=== PATIENT | female | born 2000 | race Asian ===

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

== ENCOUNTER → 2024-03-06 | Emergency (ER) | payer OTHER ==
[~2024-03-06] VITALS: Ht 162.6 cm; Wt 86.4 kg
[~2024-03-06] MED LIST: ALBU18HF12 IH; ATOM100C2 PO; BENZ-227 PO; NORG1TAB13 PO
[2024-03-06 11:05] VITALS: BP 133/84; PULSE 78; RESP 16; TEMP 99; O2SAT 98
[2024-03-06 11:44] LABS: COVID AG,FIA SOURCE NASAL SWAB
[2024-03-06 12:38] LABS: SARS-COV2 (COVID) ANTIGEN,FIA Negative (Negative)
[2024-03-06 12:39] LABS: INFLUENZA TYPE A NEGATIVE FOR TYPE A (NEGATIVE); INFLUENZA TYPE B POSITIVE FOR TYPE B (NEGATIVE)
== END | disposition still patient (30) ==
LOC: EMS 10:52
DX: J10.1 Influenza due to other identified influenza virus with other respiratory manifestations (principal); Z20.822 Contact with and (suspected) exposure to COVID-19
CPT/HCPCS: 87804; 99283